=== PATIENT | female | born 1950 | race Caucasian/White ===

== ENCOUNTER 2024-10-24 09:35 | Outpatient (AMB) | payer MEDICARE, BC, SELFPAY ==
[2024-10-24 09:49] VITALS: BP 147/80; PULSE 91; RESP 18; TEMP 36.6; O2SAT 97; BMI 27.1
--- NOTE | 2024-10-24 09:49 | PD.ORTHCLVIS ---
Vital signs 10/24/24 09:49 Height 1.63 m Height Method Stated Weight 71.781 kg Weight Measurement Method Standing Scale BMI 27.1 BP 147/80 H Blood Pressure Source Automatic Cuff Blood Pressure Location Left Upper Arm Position Sitting Respiration 18 Pulse 91 Pulse Source Monitor Temp 97.9 F Temp Source Temporal Artery Scan Pulse Oximetry (%) 97 Oxygen Delivery Method Room Air Med/Allergies Allergies & Medications Allergies No Known Allergies Allergy (Verified 10/24/24 09:50) Medication Reconciliation lisinopril 5 mg tablet 5 mg PO QDAY 10/24/24 [History Confirmed 10/24/24] meloxicam submicronized 10 mg capsule 10 mg PO QAM 10/24/24 [History Confirmed 10/24/24] Exam Exam Patient is in no acute distress and is cooperative with the examination today. Breathing is nonlabored. In no respiratory distress. Bilateral extremities were evaluated and demonstrates sensation intact to light touch. Palpable pedal pulses are present. No significant edema is present. Bilateral hips were examined. The patient has no pain with log roll of the hips. Internal rotation to 30 degrees and external rotation to 30 degrees is painless. Negative FADIR. The left knee was examined. The left knee is in [varus] alignment. Range of motion from [0-115] degrees. Knee is stable to varus and valgus as well as AP translation with <5mm. Patient has a [negative] McMurrays. There is [no] pain with patellofemoral compression and [no] crepitus noted. The knee is [tender] to palpation [medially]. The right knee was also examined. The right knee is in [varus] alignment. Range of motion from [0-120] degrees. Knee is stable to varus and valgus as well as AP translation with <5mm. Patient has a [negative] McMurrays. There is [no] pain with patellofemoral compression and [no] crepitus noted. The knee is [tender] to palpation [medially]. X-rays demonstrate significant varus deformity with complete obliteration of the medial joint space. The arthritis is worse on the right it is very severe on the right and moderate to severe on the left. Assessment and Plan Problem List (1) Degenerative arthritis of knee, bilateral: Status: Acute Plan: Patient is a pleasant 74-year-old female with bilateral knee pain and bilateral knee arthritis. We discussed nonoperative options including injections and anti-inflammatories. She is failed conservative treatment and we thus discussed total knee replacement as a reasonable option. The nature and purpose of the total knee replacement, alternative method(s) of treatment, the material risks involved, and the possibility of complications were fully explained to the patient. The patient does NOT have any of the following contraindications to TKA: - Active infection of the knee joint, OR - Active systemic bacteremia, OR - Active skin infection or open wound at surgical site, OR - Neuropathic arthritis, OR - Severe, rapidly progressive neurological disease, OR - Severe medical condition that makes risks of surgery outweigh the potential benefit The patient was told the most common risks and complications associated with a total knee replacement include, but are not limited to: blood clots in the leg, fatal pulmonary embolism, dislocation of the prosthesis, intraoperative and postoperative fractures of the femur or tibia, infection, failure of the prosthesis or grafting materials, complications from anesthesia, reactions to blood transfusions, postoperative leg length inequality, instability of the knee replacement, nerve damage or injury, vascular injury, delayed wound healing, infection, other injury or even . In addition, there are risks associated with anesthesia given during this operation. Also, the patient was told that after undergoing a total knee replacement there may still be persistent pain or disability. The patient was informed that the success of this operation in part depends upon the mechanical devices which are going to be implanted and that these devices can fail or malfunction, and may need to be repaired or replaced and there are no guarantees as to the longevity of this device or its parts and that it or its parts could fail prematurely. The patient was also notified that during the course of surgery, there may be a need to use bone graft from donors, and that any bone graft used will be carefully screened for communicable diseases, including AIDS, hepatitis, Shimon-Creutzfeldt, or other diseases, but despite the screening procedures, there is a small chance that they could contract one of these diseases. Finally, the patient was asked to follow completely and fully with all advice and recommended treatments, and that recovery and ultimate outcome are affected by their compliance with recommended treatment. We discussed the risks, benefits and treatment alternatives, and the patient is interested in proceeding with surgery. We will try to set this up as expeditiously as possible. Advanced Care Planning Discussion Advance care planning discussed with:: patient Office Procedures GNS Level of Care Nursing/Assessment Patient Status: Established Patient Nursing Assessment/Reassesment: Medication Reconciliation, Update PMH in EMR and Vital Signs Coordination of Care: Complex Care and Chronic Disease 1-5, Education Complex Pt/Fam, Consent,records obtained, informed consent, Results/Orders obtained and Staff clarify orders Established Patient Charge Established Patient Point Assignment: 95 Established Patient Point Charge: EP Level 3 (80-115) MA Intake Visit Data Collection New Patient or Established: Established Patient (seen at [facility] within 3 years) Reason for Visit:: F/U KNEE PAIN Seen by Clinical Staff ONLY (RN/MA): No Rip/Mould Operator Required: No PCP or OBGYN visit in last 3 months: Yes Hx Now: No Do You Feel Safe at Home: Yes Authorities Contacted: N/A Questionairres Past Medical History Past Medical History Have you ever been diagnosed with any of the following: Respiratory Problems Smoking: No Smoking Exposure: No Subjective Visit Visit for: follow up visit and knee (RIGHT) Immunization / Flu Flu Vaccine in the Last 12 Months: No Flu Vaccine Exclusion Criteria: No Exclusion Criteria History of Present Illness Chief complaint: Bilateral knee pain worse on the right Elisabet is a pleasant 74-year-old female with Bilateral knee pain worse on the right. She has tried several injections and is failed conservative treatment. The pain is affecting her quality life and happiness. Pain Pain level (0-10): 0 Associated signs & symptoms: none Ambulatory data Ambulatory device: none Treatments Improvement with previous injections: No Improvement with PT: No Improvement with NSAIDS: no Review of Systems Review of Systems: All systems negative unless otherwise noted in HPI.
== END 2024-10-24 10:19 | disposition home or self-care (01) ==
LOC: HODSRG 09:35
PROVIDERS: PCP Family Medicine; Referring Provider Family Medicine; Supervising Provider Orthopaedic Surgery Adult Reconstructive Orthopaedic Surgery; Visit Provider Orthopaedic Surgery Adult Reconstructive Orthopaedic Surgery
DX: M17.0 Bilateral primary osteoarthritis of knee (principal)
CPT/HCPCS: 99213; G0463

== ENCOUNTER 2025-01-15 10:24 | Outpatient (AMB) | payer MEDICARE, BC, SELFPAY ==
[2025-01-15 10:48] VITALS: BP 155/73; PULSE 81; RESP 18; TEMP 36.8; O2SAT 98; BMI 27.3
--- NOTE | 2025-01-15 10:48 | ORTHONT_ITS ---
Vital signs 01/15/25 10:48 Height 1.63 m Height Method Stated Weight 72.802 kg Weight Measurement Method Standing Scale BMI 27.3 BP 155/73 H Blood Pressure Source Automatic Cuff Blood Pressure Location Right Upper Arm Position Sitting Respiration 18 Pulse 81 Pulse Source Monitor Temp 98.3 F Temp Source Temporal Artery Scan Pulse Oximetry (%) 98 Oxygen Delivery Method Room Air Med/Allergies Allergies & Medications Allergies No Known Allergies Allergy (Verified 01/15/25 10:49) Medication Reconciliation lisinopril 5 mg tablet 5 mg PO QDAY 10/24/24 [History Confirmed 01/15/25] meloxicam submicronized 10 mg capsule 10 mg PO QAM 10/24/24 [History Confirmed 01/15/25] Exam Exam Patient is in no acute distress and is cooperative with the examination today. Breathing is nonlabored. In no respiratory distress. Bilateral extremities were evaluated and demonstrates sensation intact to light touch. Palpable pedal pulses are present. No significant edema is present. Bilateral hips were examined. The patient has no pain with log roll of the hips. Internal rotation to 30 degrees and external rotation to 30 degrees is painless. Negative FADIR. The left knee was examined. The left knee is in [varus] alignment. Range of motion from [0-115] degrees. Knee is stable to varus and valgus as well as AP translation with <5mm. Patient has a [negative] McMurrays. There is [no] pain with patellofemoral compression and [no] crepitus noted. The knee is [tender] to palpation [medially]. The right knee was also examined. The right knee is in [varus] alignment. Range of motion from [0-120] degrees. Knee is stable to varus and valgus as well as AP translation with <5mm. Patient has a [negative] McMurrays. There is [no] pain with patellofemoral compression and [no] crepitus noted. The knee is [tender] to palpation [medially]. X-rays demonstrate significant varus deformity with complete obliteration of the medial joint space. The arthritis is worse on the right it is very severe on the right and moderate to severe on the left. Assessment and Plan Problem List (1) Degenerative arthritis of knee, bilateral: Status: Acute Plan: Patient is a pleasant 74-year-old female with bilateral knee pain and bilateral knee arthritis. We discussed nonoperative options including injections and anti-inflammatories. She is failed conservative treatment and we thus discussed total knee replacement as a reasonable option. The nature and purpose of the total knee replacement, alternative method(s) of treatment, the material risks involved, and the possibility of complications were fully explained to the patient. The patient does NOT have any of the following contraindications to TKA: - Active infection of the knee joint, OR - Active systemic bacteremia, OR - Active skin infection or open wound at surgical site, OR - Neuropathic arthritis, OR - Severe, rapidly progressive neurological disease, OR - Severe medical condition that makes risks of surgery outweigh the potential benefit The patient was told the most common risks and complications associated with a total knee replacement include, but are not limited to: blood clots in the leg, fatal pulmonary embolism, dislocation of the prosthesis, intraoperative and postoperative fractures of the femur or tibia, infection, failure of the prosthesis or grafting materials, complications from anesthesia, reactions to blood transfusions, postoperative leg length inequality, instability of the knee replacement, nerve damage or injury, vascular injury, delayed wound healing, infection, other injury or even . In addition, there are risks associated with anesthesia given during this operation. Also, the patient was told that after undergoing a total knee replacement there may still be persistent pain or disability. The patient was informed that the success of this operation in part depends upon the mechanical devices which are going to be implanted and that these devices can fail or malfunction, and may need to be repaired or replaced and there are no guarantees as to the longevity of this device or its parts and that it or its parts could fail prematurely. The patient was also notified that during the course of surgery, there may be a need to use bone graft from donors, and that any bone graft used will be carefully screened for communicable diseases, including AIDS, hepatitis, Jako b-Creutzfeldt, or other diseases, but despite the screening procedures, there is a small chance that they could contract one of these diseases. Finally, the patient was asked to follow completely and fully with all advice and recommended treatments, and that recovery and ultimate outcome are affected by their compliance with recommended treatment. We discussed the risks, benefits and treatment alternatives, and the patient is interested in proceeding with surgery. We will try to set this up as expeditiously as possible. Advanced Care Planning Discussion Advance care planning discussed with:: patient and spouse Office Procedures GNS Level of Care Nursing/Assessment Patient Status: Established Patient Nursing Assessment/Reassesment: Medication Reconciliation, Update PMH in EMR and Vital Signs Coordination of Care: Complex Care and Chronic Disease 1-5, Education Complex Pt/Fam, Consent,records obtained, informed consent, Results/Orders obtained and Staff clarify orders Established Patient Charge Established Patient Point Assignment: 95 Established Patient Point Charge: EP Level 3 (80-115) MA Intake Visit Data Collection New Patient or Established: Established Patient (seen at [facility] within 3 years) Reason for Visit:: PRE-OP & F/U CARDIAC CLEARANCE Seen by Clinical Staff ONLY (RN/MA): No Verbal consent obtained for Telemed visit?: No Nurse Charge Rn Required: No PCP or OBGYN visit in last 3 months: Yes Hx Now: No Do You Feel Safe at Home: Yes Authorities Contacted: N/A Questionairres Past Medical History Past Medical History Have you ever been diagnosed with any of the following: Respiratory Problems Smoking: No Smoking Exposure: No Subjective Visit Visit for: follow up visit and knee Immunization / Flu Flu Vaccine in the Last 12 Months: Yes Flu Vaccine Exclusion Criteria: No Exclusion Criteria History of Present Illness Chief complaint: PRE-OP & CARDIAC CLEARANCE Elisabet is a pleasant 74-year-old female with Bilateral knee pain worse on the right. She has tried several injections and has failed conservative treatment. The pain is affecting her quality life and happiness. Personal History Red flag PMH: BMI BMI Counceling provided: No Pain Pain level (0-10): 4 Pain duration: CONSTANTLY Pain location: inside (medial), outside (lateral), anterior and posterior Pain quality: sharp, dull and aching Pain timing: increases with activity Associated signs & symptoms: none Ambulatory data Ambulatory device: none Treatments Improvement with previous injections: No Improvement with PT: No Improvement with NSAIDS: no Review of Systems Review of Systems: All systems negative unless otherwise noted in HPI.
== END 2025-01-15 11:00 | disposition home or self-care (01) ==
LOC: HODSRG 10:24
PROVIDERS: PCP Family Medicine; Referring Provider Family Medicine; Supervising Provider Orthopaedic Surgery Adult Reconstructive Orthopaedic Surgery; Visit Provider Orthopaedic Surgery Adult Reconstructive Orthopaedic Surgery
DX: M17.0 Bilateral primary osteoarthritis of knee (principal); M25.562 Pain in left knee; M25.561 Pain in right knee
CPT/HCPCS: 99213; G0463

== ENCOUNTER → 2025-01-15 | Outpatient (CLI) | payer MEDICARE, BC, SELFPAY ==
--- NOTE | 2025-01-15 | XR_ITS ---
Examination: CT right lower extremity, without contrast. 2-D sagittal reconstructions. 2-D coronal reconstructions. 3-D reconstructions. Date and time of exam:January 15, 2025 1225 hours INDICATIONS: Diagnosis right knee osteoarthritis, right knee pain 25 years CTDI: vol (mGy):11.4 DLP: (mGycm):891 Technique: Multiple 1.25 mm axial sections of the right lower extremity without intravenous contrast have been obtained. 2-D sagittal and coronal reconstructions have been obtained. 3-D reconstructions have been obtained. Low dose protocols were performed. One or more of the following dose reduction techniques were used; automated exposure control, adjustment of the mA and/or KV according to patient size, use of iterative reconstruction technique. Findings: Moderate osteopenia Mild narrowing right hip joint No hip fracture or hip dislocation Advanced right knee tricompartment osteoarthritis, severe narrowing medial joint space No fractures IMPRESSION: Advanced right knee tricompartment osteoarthritis
== END | disposition home or self-care (01) ==
PROVIDERS: PCP Student in an Organized Health Care Education/Training Program; Referring Provider Orthopaedic Surgery Adult Reconstructive Orthopaedic Surgery; Visit Provider Orthopaedic Surgery Adult Reconstructive Orthopaedic Surgery
DX: M17.11 Unilateral primary osteoarthritis, right knee (principal)
CPT/HCPCS: 73700

== ENCOUNTER 2025-01-26 05:35 | Day surgery (SDC) | payer MEDICARE, BC, SELFPAY ==
[2025-01-23 07:52] VITALS: BMI 28.3
[2025-01-23 09:51] LABS: Basophils % (Auto) 1 % (0-2.5); Eosinophils # (Auto) 0.2 Thou/mm3 (0.0-0.5); Eosinophils % (Auto) 4 % (0-10); Hematocrit 36.1 % (36.0-46.0); Hemoglobin 12.5 g/dL (12.0-16.0); Immature Granulocytes % (Auto) 0 % (0-0); Immature Granulocytes Auto 0.01 Thou/mm3 (0.00-0.00); Lymphocytes % (Auto) 35 % (10-50); Mean Corpuscular HGB Conc 34.6 g/dl (31.0-37.0); Mean Corpuscular Hemoglobin 29.4 pg (25.0-35.0); Mean Corpuscular Volume 85 fL (80-100); Monocytes # (Auto) 0.5 Thou/mm3 (0.0-0.8); Monocytes % (Auto) 9 % (0-12); Neutrophils # (Auto) 2.8 Thou/mm3 (1.8-7.7); Neutrophils % (Auto) 51 % (37-80); Nucleated Red Blood Cell % 0 /100 WBC (0); Platelet Count 306 Thou/mm3 (140-440); Red Blood Count 4.25 Miln/mm3 (4.00-5.20); White Blood Count 5.6 Thou/mm3 (3.6-11.0)
[2025-01-23 10:02] LABS: Partial Thromboplastin Time 24.8 Seconds (22.0-36.0); Prothrombin Time 10.9 Seconds (9.0-12.2)
[2025-01-23 10:04] LABS: Alanine Aminotransferase 17 U/L (10-49); Albumin, Serum 4.6 gm/dL (3.4-4.8); Albumin/Globulin Ratio 2.3 (1.2-2.2); Alkaline Phosphatase 90 U/L (46-116); Anion Gap 10 (7-16); Aspartate Amino Transferase 27 U/L (0-34); BUN/Creatinine Ratio 11 Ratio (12-20); Bilirubin,Total 0.7 mg/dL (0.3-1.2); Blood Urea Nitrogen 11 mg/dL (9-23); Calcium 9.7 mg/dL (8.3-10.6); Calcium (Corrected) 9.7 mg/dL (8.5-10.1); Carbon Dioxide 25.5 mMol/L (20.0-31.0); Chloride 102 mMol/L (98-107); Estimated Creatinine Clearance 46.4 mL/min (>60); Glucose 101 mg/dL (74-106); Osmolality,Calculated 273 (275-295); Sodium 137 mMol/L (136-145); Total Protein 6.6 gm/dL (5.7-8.2); eGFR 59 See Note
[2025-01-26] VITALS (13 sets, daily range): BP systolic 112–176; BP diastolic 56–94; PULSE 60–76; RESP 13–20; TEMP 36.3–36.7; O2SAT 95–100; BMI 28.1
[2025-01-26] MEDS: ACETAMINOPHEN 325 MG TABLET 650 MG PO (06:55)
[2025-01-26] MEDS: PREGABALIN 75 MG CAPSULE PO (06:55)
[2025-01-26] MEDS: MELOXICAM 7.5 MG TABLET PO (06:55)
--- NOTE | 2025-01-26 09:19 | PD.SUROPNT ---
Date of Procedure 01/26/25 Pre Op Diagnosis right knee osteoarthritis Post Op Diagnosis right knee osteoarthritis Procedure right total knee replacement Findings full thickness cartilage loss and osteophytes Procedure Description Indication: The patient is a 74 year old who has a long history of right knee pain. X-rays show degenerative arthritis involving the knee. Over the past several years the patient has had increasing pain, progressive limitation in function. He has failed conservative measures including activity modification, physical therapy, injections, anti-inflammatories, and assistive devices. After a lengthy discussion of the risks and benefits, the patient presents now for total knee replacement. The nature and purpose of the total knee replacement, alternative method(s) of treatment, the material risks involved, and the possibility of complications were fully explained to the patient. The patient was told the most common risks and complications associated with a total knee replacement include, but are not limited to blood clots in the leg, fatal pulmonary embolism, dislocation of the prosthesis, intraoperative and postoperative fractures of the femur or tibia, infection, failure of the prosthesis or grafting materials, complications from anesthesia, reactions to blood transfusions, postoperative leg length inequality, instability of the knee replacement, nerve damage or injury, vascular injury, delayed wound healing, infections, other injury or even . In addition, there are risks associated with anesthesia given during this operation, temporary or permanent numbness on the skin lateral to the incision can be a complication unique to total knee surgery, and kneeling can be painful after knee replacement surgery. Also, the patient was told that after undergoing a total knee replacement there may still be pain or disability. We discussed with the patient that we will be using a robot-assisted technology. We discussed that there is a possibility of converting to manual instrumentation. The patient was informed that the success of this operation in part depends upon the mechanical devices which are going to be implanted and that these devices can fail or malfunction, and may need to be repaired or replaced and there are no guarantees as to the longevity of this device or its part and that it or its parts could fail prematurely. Finally, the patient was asked to follow completely and fully with all advice and recommended treatments, and that recovery and ultimate outcome are affected by their compliance with recommended treatment. Surgical technique: Patient was marked and consented in the pre-operative area. The patient was brought to the operating room and placed on the operating table in a supine position. Prior to positioning, a timeout procedure was performed between the surgeon, the anesthesiologist, and the nursing staff where the patient and the operative side were identified and confirmed. After adequate general anesthetic was obtained, the right lower extremity was prepped and draped in the usual sterile fashion. A weight based dose of Cefazolin were administered within 1 hour prior to incision. The robot was preregistered and calirated before the incision. The extremity was exsanguinated with an esmarch badge and tourniquet inflated to 250mmHg. A midline incision was made. A median parapatellar arthrotomy was made. The patella was subluxed laterally. A medial release was performed to expose the medial tibia. His femoral and tibial pins were placed through an intra incisional manner for both cases. Every effort was made to ensure that the distalmost aspect of the pin was hung in the second cortex. The arrays were then tightened several times to ensure that it was fixed for the remainder of the case. Both femoral and tibial checkpoints were then placed. We then went through the registration process of the bone. We then assessed the knee deformity and attempted to correct it. We also used the robot to aid in judging laxity in both extension and flexion. Final based on laxity and alignment we changed the preoperative assessment to obtain proper proper implant positioning and to correct deformity. Attention was then placed to the tibia. We made a tibial cut using the robot ensuring that both the MCL and the patella tendon were protected with retractors. We then went to the femur and made the posterior cut followed by the anterior cut and the anterior chamfer. The bone was then removed and we made a distal femur cut and a posterior chamfer cut. We verified all cuts. A trial reduction was performed with a size 4 femoral component and a size 3 keeled tibial component. The patella was cut and sized to a 36. The patella tracked centrally, and no lateral retinacular release was necessary. The trial implants were removed. The arrays, pins, and checkpoints were all removed. We performed a verification that all pins were removed. The cut bone surfaces were lavaged. A size 4 right femoral component, a size 3 keeled tibial component were impacted into position using 2 bags of palacos. A trial insert was placed and a size 36 patella were impacted into position. The knee was placed in extension until the cement hardened. The knee was felt to be well balanced in the sagittal and coronal plane. The final 3x12] mm cruciate-substituting articular insert was impacted into the tibial tray. The knee was brought out to full extension, flexed up to 120 degrees. It was stable to varus and valgus stress and appropriately balanced in flexion and extension. The wounds were copiously irrigated following deflation of tourniquet. The medial retinaculum was reapproximated with #1 vicryl and quill. The subcutaneous tissues were closed with 0 and 2-0 interrupted Vicryl. The skin was closed with 3-0 Monofilament V loc suture. A sterile dressing was applied. The patient was transferred to a bed and brought to recovery in stable condition. The patient tolerated the procedure well. There were no intraoperative complications. Sponge and needle counts were correct times 2. As the attending surgeon, I attest I was present and performed the entire operation. Grafts/Implants Size 4 CR Femur Size 3 Tibia 12mm poly CS 36mm patella 2 bags of palacos Anesthesia spinal Implants Viewdle Pathology / specimen None Pathology comment: none Estimated Blood Loss 150 Condition Stable Disposition same day Surgeon Dexter James MD Surgical Staff Operation Date: 01/26/25 07:30 Case Staff Anesthesiologist: Kenton Graham RN First Assistant: Angelika Ceron
--- NOTE | 2025-01-26 09:22 | XR_ITS ---
Examination: Right knee 2 views Technique one AP lateral right knee 2 views Date and time: January 26, 2025 1002 hours INDICATIONS: Postop knee replacement FINDINGS: Moderate osteopenia Total right knee arthroplasty. Satisfactory alignment No fractures IMPRESSION: Total right knee arthroplasty with satisfactory alignment
--- NOTE | 2025-01-26 09:37 | SUR.PHASEI ---
0937 Patient arrived to recovery awake and talking with staff, on oxygen 3L via oxy mask, breathing unlabored, vital signs stable, denies pain, dressing intact to right knee; prineo, abd, webril, marialuisa wraps, no bleeding noted, post spinal assessment via ice, patient has dermatome sensation at L1-groin, will continue to monitor, patient able to move bilateral lateral lower extremities, patient has good circulation to right lower extremity; skin color normal for patient and warm to touch, report received from Patience ALBERTS/Himanshu ALBERTS and Dr. Graham
--- NOTE | 2025-01-26 10:10 | SUR.PHASEI ---
1010 XRAY complete per MD order
--- NOTE | 2025-01-26 10:16 | SUR.PHASEI ---
patients at bedside talking with patient, patient eating ice chips; tolerating well
[2025-01-26] MEDS: ONDANSETRON INJ 2 MG/ML INJ 2 ML 4 MG IVP (10:48)
--- NOTE | 2025-01-26 11:08 | SUR.PHASEII ---
1108 Post spinal anesthesia anesthesia complete patient has dermatome sensation at S2 perineum
--- NOTE | 2025-01-26 11:30 | SUR.PHASEII ---
1130 Patient had an incontinence episode in the bed, patient cleaned and gown/underwear changed
--- NOTE | 2025-01-26 11:50 | SUR.PHASEII ---
1153 patient cleared by physical therapy to proceed with discharge
--- NOTE | 2025-01-26 12:07 | SUR.PHASEII ---
1207 Patient meets discharge criteria from recovery, awake and alert, breathing unlabored, vital signs stable, denies pain, dressing intact; no bleeding noted, eating ice chips with her nausea at a tolerable level, patient assisted with dressing into her clothing by this mortgage underwriter, discharge instructions given to patient and patients , signed discharge instructions. Patient given all her belongings prior to discharge, transported via wheelchair and left in a private vehicle.
== END 2025-01-26 12:07 | disposition home or self-care (01) ==
PROVIDERS: Anesthesiology; PCP Student in an Organized Health Care Education/Training Program; Referring Provider Orthopaedic Surgery Adult Reconstructive Orthopaedic Surgery; Visit Provider Orthopaedic Surgery Adult Reconstructive Orthopaedic Surgery
PROC: (CPT 27447; principal; 2025-01-26 07:30)
DX: M17.11 Unilateral primary osteoarthritis, right knee (principal); M25.761 Osteophyte, right knee
CPT/HCPCS: 27447; 20985; 36415; 73560; 80053; 85025; 85610; 85730; 97162; A4217; C1713; C1776; J0690; J1100; J1885; J2250; J2405; J2704; J2795; J3010; J3490; J7030; J7999; A4648; A4649; A9270

== ENCOUNTER 2025-02-10 09:11 | Outpatient (AMB) | payer MEDICARE, BC, SELFPAY ==
--- NOTE | 2025-02-10 09:39 | PD.ORTHCLVIS ---
Vital signs 02/10/25 09:44 Weight 71.271 kg Weight Measurement Method Standing Scale BP 126/72 Blood Pressure Source Automatic Cuff Blood Pressure Location Left Upper Arm Position Sitting Respiration 16 Pulse 95 Pulse Source Monitor Temp 98.4 F Temp Source Temporal Artery Scan Pulse Oximetry (%) 98 Oxygen Delivery Method Room Air Med/Allergies Allergies & Medications Allergies shellfish derived Allergy (Intermediate, Verified 02/10/25 09:44) Fatigued Medication Reconciliation lisinopril 5 mg tablet 5 mg PO QDAY 10/24/24 [History Confirmed 02/10/25] meloxicam 7.5 mg tablet 7.5 mg PO DAILY 01/23/25 [History Confirmed 02/10/25] acetaminophen 500 mg tablet (Acetaminophen Extra Strength) 1,000 mg (2 x 500 mg) PO Q6H PRN pain #90 tabs 01/26/25 [Rx Confirmed 02/10/25] aspirin 81 mg tablet,delayed release 81 mg PO BID #60 tabs 01/26/25 [Rx Confirmed 02/10/25] doxycycline hyclate 100 mg tablet 100 mg PO BID #14 tabs 01/26/25 [Rx Confirmed 02/10/25] gabapentin 300 mg capsule 300 mg PO .qhs #30 caps 01/26/25 [Rx Confirmed 02/10/25] oxycodone 5 mg tablet 5 mg PO Q6H PRN pain #28 tabs 01/26/25 [Rx Confirmed 02/10/25] sennosides 8.6 mg-docusate sodium 50 mg tablet (Senna-S) 1 tab-cap PO QDAY #30 tabs 01/26/25 [Rx Confirmed 02/10/25] Exam Exam Patient is in no acute distress and is cooperative with the examination today. Breathing is nonlabored. In no respiratory distress. Bilateral extremities were evaluated and demonstrates sensation intact to light touch. Palpable pedal pulses are present. No significant edema is present. Bilateral hips were examined. The patient has no pain with log roll of the hips. Internal rotation to 30 degrees and external rotation to 30 degrees is painless. Negative FADIR. The left knee was examined. The left knee is in [varus] alignment. Range of motion from [0-115] degrees. Knee is stable to varus and valgus as well as AP translation with <5mm. Patient has a [negative] McMurrays. There is [no] pain with patellofemoral compression and [no] crepitus noted. The knee is [tender] to palpation [medially]. Right knee incision is clean dry and intact. Range of motion is 0 to 100 degrees Assessment and Plan Problem List (1) Degenerative arthritis of knee, bilateral: Status: Acute Plan: Patient is a pleasant 74-year-old female with bilateral knee pain and bilateral knee arthritis. She is status post right total knee replacement. We will see her in approximately 4 weeks Advanced Care Planning Discussion Advance care planning discussed with:: patient Office Procedures GNS Level of Care Nursing/Assessment Patient Status: Established Patient Nursing Assessment/Reassesment: Medication Reconciliation, Update PMH in EMR and Vital Signs Coordination of Care: Complex Care and Chronic Disease 1-5, Education Complex Pt/Fam, Consent,records obtained, informed consent, Results/Orders obtained and Staff clarify orders Established Patient Charge Established Patient Point Assignment: 95 Established Patient Point Charge: EP Level 3 (80-115) MA Intake Visit Data Collection New Patient or Established: Established Patient (seen at [facility] within 3 years) Reason for Visit:: 2 WEEK POST RT TKA Seen by Clinical Staff ONLY (RN/MA): No [employer] Required: No PCP or OBGYN visit in last 3 months: Yes Hx Now: No Do You Feel Safe at Home: Yes Authorities Contacted: N/A Questionairres Past Medical History Past Medical History Have you ever been diagnosed with any of the following: Neurological Problems Seizures: No Cardiology Problems Congestive Heart Failure: No Hypertension: Yes Varicose Veins: No Respiratory Problems Chronic Obstructive Pulmonary Disease (COPD): No Smoking: No Smoking Exposure: No Stomache/Intestinal Problems Hepatitis: No Genital/Urinary Problems Renal Disease: No Reproductive Problems Previous Pregnancies: Yes Musculoskeletal Problems Arthritis: Yes Endocrine Problems Diabetes Mellitus Type 1: No Diabetes Mellitus Type 2: No Psychologic Problems Anxiety: Yes Other Problems Shingles: No Blood Transfusions: No Blood Transfusion Reaction: No Anesthesia Reactions: No Chicken Pox: Yes Measles: Yes Mumps: Yes Cancer: No Subjective Visit Visit for: follow up visit and post op #1 (2 WEEK POST RT TKA ) Immunization / Flu Flu Vaccine in the Last 12 Months: No Flu Vaccine Exclusion Criteria: Refused by Patient History of Present Illness Chief complaint: PRE-OP & CARDIAC CLEARANCE Elisabet is a pleasant 74-year-old female with Bilateral knee pain worse on the right. She is status post right total knee replacement And is doing well Personal History Red flag PMH: none BMI Counceling provided: No Pain Pain level (0-10): 5 Pain duration: 01/2025 Pain location: anterior Pain quality: aching Pain timing: increases with activity Associated signs & symptoms: stiffness Ambulatory data Ambulatory device: cane Walking distance (minutes): 1 Treatments Number of previous injections: 2 Improvement with previous injections: No Number of Physical Therapy sessions: 7 Improvement with PT: Yes Improvement with NSAIDS: n/a Review of Systems Review of Systems: All systems negative unless otherwise noted in HPI.
[2025-02-10 09:44] VITALS: BP 126/72; PULSE 95; RESP 16; TEMP 36.9; O2SAT 98
== END 2025-02-10 09:52 | disposition home or self-care (01) ==
LOC: HODSRG 09:11
PROVIDERS: PCP Student in an Organized Health Care Education/Training Program; Referring Provider Student in an Organized Health Care Education/Training Program; Supervising Provider Orthopaedic Surgery Adult Reconstructive Orthopaedic Surgery; Visit Provider Orthopaedic Surgery Adult Reconstructive Orthopaedic Surgery
DX: M17.0 Bilateral primary osteoarthritis of knee (principal); M25.562 Pain in left knee; M25.561 Pain in right knee; Z96.651 Presence of right artificial knee joint; I10 Essential (primary) hypertension
CPT/HCPCS: 99213; G0463

== ENCOUNTER 2025-03-03 08:46 | Outpatient (AMB) | payer MEDICARE, BC, SELFPAY ==
--- NOTE | 2025-03-03 08:56 | PD.ORTHCLVIS ---
Vital signs 03/03/25 09:02 Height 1.6 m Height Method Stated Weight 71.299 kg Weight Measurement Method Standing Scale BMI 27.8 BP 134/84 H Blood Pressure Source Automatic Cuff Blood Pressure Location Left Upper Arm Position Sitting Respiration 18 Pulse 82 Pulse Source Monitor Temp 97.0 F Temp Source Temporal Artery Scan Pulse Oximetry (%) 95 Oxygen Delivery Method Room Air Med/Allergies Allergies & Medications Allergies shellfish derived Allergy (Intermediate, Verified 03/03/25 09:04) Fatigued Medication Reconciliation lisinopril 5 mg tablet 5 mg PO QDAY 10/24/24 [History Confirmed 03/03/25] meloxicam 7.5 mg tablet 7.5 mg PO DAILY 01/23/25 [History Confirmed 03/03/25] acetaminophen 500 mg tablet (Acetaminophen Extra Strength) 1,000 mg (2 x 500 mg) PO Q6H PRN pain #90 tabs 01/26/25 [Rx Confirmed 03/03/25] aspirin 81 mg tablet,delayed release 81 mg PO BID #60 tabs 01/26/25 [Rx Confirmed 03/03/25] gabapentin 300 mg capsule 300 mg PO .qhs #30 caps 01/26/25 [Rx Confirmed 03/03/25] oxycodone 5 mg tablet 5 mg PO Q6H PRN pain #28 tabs 02/18/25 [Rx Confirmed 03/03/25] Exam Exam Patient is in no acute distress and is cooperative with the examination today. Breathing is nonlabored. In no respiratory distress. Bilateral extremities were evaluated and demonstrates sensation intact to light touch. Palpable pedal pulses are present. No significant edema is present. Bilateral hips were examined. The patient has no pain with log roll of the hips. Internal rotation to 30 degrees and external rotation to 30 degrees is painless. Negative FADIR. The left knee was examined. The left knee is in [varus] alignment. Range of motion from [0-115] degrees. Knee is stable to varus and valgus as well as AP translation with <5mm. Patient has a [negative] McMurrays. There is [no] pain with patellofemoral compression and [no] crepitus noted. The knee is [tender] to palpation [medially]. Right knee incision is clean dry and intact. Range of motion is 0 to 100 degrees Assessment and Plan Problem List (1) Degenerative arthritis of knee, bilateral: Status: Acute Plan: Patient is a pleasant 74-year-old female with bilateral knee pain and bilateral knee arthritis. She is status post right total knee replacement. We will see her in approximately 6 weeks I will order new x-rays as well Advanced Care Planning Discussion Advance care planning discussed with:: patient Office Procedures GNS Level of Care Nursing/Assessment Patient Status: Established Patient Nursing Assessment/Reassesment: Medication Reconciliation, Update PMH in EMR and Vital Signs Coordination of Care: Complex Care and Chronic Disease 1-5, Education Complex Pt/Fam, Consent,records obtained, informed consent, Results/Orders obtained and Staff clarify orders Established Patient Charge Established Patient Point Assignment: 95 Established Patient Point Charge: EP Level 3 (80-115) MA Intake Visit Data Collection New Patient or Established: Established Patient [place] [facility] [place] Reason for Visit:: R TKA F/U SWOLLEN/HOT TO TOUCH Seen by Clinical Staff ONLY (RN/MA): No PCP or OBGYN visit in last 3 months: Yes Hx Now: No Do You Feel Safe at Home: Yes Authorities Contacted: N/A Questionairres Past Medical History Past Medical History Have you ever been diagnosed with any of the following: Neurological Problems Seizures: No Cardiology Problems Congestive Heart Failure: No Hypertension: Yes Varicose Veins: No Respiratory Problems Chronic Obstructive Pulmonary Disease (COPD): No Smoking: No Smoking Exposure: No Stomache/Intestinal Problems Hepatitis: No Genital/Urinary Problems Renal Disease: No Reproductive Problems Previous Pregnancies: Yes Musculoskeletal Problems Arthritis: Yes Endocrine Problems Diabetes Mellitus Type 1: No Diabetes Mellitus Type 2: No Psychologic Problems Anxiety: Yes Other Problems Shingles: No Blood Transfusions: No Blood Transfusion Reaction: No Anesthesia Reactions: No Chicken Pox: Yes Measles: Yes Mumps: Yes Cancer: No Surgical History Total Knee Replacement: Yes (RIGHT) Subjective Visit Visit for: follow up visit and knee Immunization / Flu Flu Vaccine in the Last 12 Months: No Flu Vaccine Exclusion Criteria: No Exclusion Criteria History of Present Illness Chief complaint: PRE-OP & CARDIAC CLEARANCE Elisabet is a pleasant 74-year-old female with Bilateral knee pain worse on the right. She is status post right total knee replacement And is doing well. She is 6 weeks postop and is using a cane at times Personal History Red flag PMH: none BMI Counceling provided: No Pain Pain level (0-10): 2 Pain duration: WITH MOVEMENT Pain location: anterior Pain quality: aching Pain timing: increases with activity Associated signs & symptoms: none Ambulatory data Ambulatory device: cane Walking distance (minutes): 1 Treatments Number of previous injections: 2 Improvement with previous injections: No Number of Physical Therapy sessions: 7 Improvement with PT: No Improvement with NSAIDS: no Review of Systems Review of Systems: All systems negative unless otherwise noted in HPI.
[2025-03-03 09:02] VITALS: BP 134/84; PULSE 82; RESP 18; TEMP 36.1; O2SAT 95; BMI 27.8
--- NOTE | 2025-03-03 09:06 | XR_ITS ---
Examination: Bilateral knees 2 views Standing lateral right knee axial right knee 2 views TECHNIQUE: Standing bilateral AP knees single view, standing bilateral PA knees single view flexion Date and time: March 03, 2025 0915 hours INDICATIONS: Status post right knee surgery January 26, 2025, fever and knee swelling 3 days. FINDINGS: Moderate osteopenia Total right knee arthroplasty. Satisfactory alignment No patellar dislocation No fracture Advanced narrowing medial joint space left knee Significant osteoarthritis lateral joint space left knee IMPRESSION: Total right knee arthroplasty with satisfactory alignment Small to moderate right knee effusion
== END 2025-03-03 09:14 | disposition home or self-care (01) ==
LOC: HODSRG 08:46
PROVIDERS: Supervising Provider Orthopaedic Surgery Adult Reconstructive Orthopaedic Surgery; Visit Provider Orthopaedic Surgery Adult Reconstructive Orthopaedic Surgery
DX: M17.0 Bilateral primary osteoarthritis of knee (principal); M25.562 Pain in left knee; M25.561 Pain in right knee; M25.461 Effusion, right knee; Z96.651 Presence of right artificial knee joint; I10 Essential (primary) hypertension
CPT/HCPCS: 73564; 99213; G0463

== ENCOUNTER 2025-03-19 09:00 | Outpatient (RCR) | payer MEDICARE, BC, SELFPAY ==
--- NOTE | 2025-02-18 11:23 | PTNOTE_ITS ---
PT OP Initial Eval Patient Information Outpatient Physical Therapy Treatment Date: 02/18/25 Visit Reasons: RT knee post op Medical Diagnosis: s/p R TKA Treatment Dx #1: R knee pain Treatment Dx #2: Dec R knee ROM Start of Care: 02/18/25 Date of Onset: 01/26/25 Smoking Status Smoking Status: Never smoker Initial Assessment Subjective: Pt is 74 yr old female s/p R TKA presents ambulating with cane and reports pain with walking and bending it. This limits walking distance to HH and limited community distances. She had HH therapy for a few visits and has been doing HEP. PMH: OA Pt goal: to walk without the cane and without R knee pain Objective: R knee AROM: ? Flexion: 95 deg ? Extension: -7 deg ? SLR: ? 65 deg ? Strength: ? Quads and hamstrings 3+/5 ? Antalgic gait pattern with decreased WB tolerance on R LE Assessment: Pt presentation consistent with post op TKA with decreased ROM, strength ? and WB tolerance. Pt lacks a few degrees of knee extension and flexion is limited by ? myofascial limitations and pain.? Pt requires skilled therapy to improve ROM ? and strength and has good rehab potential.? Eval followed by HEP with printout. Short Term and Dope Worker Goals 1. Independent with HEP 2. Improved knee ROM to full extension to 115 deg flexion 3. Improved quad and hamstring strength to 4/5 4. Improved ambulatory tolerance to community distances with symmetrical ?? gait pattern.??? Treatment Plan 1. Manual therapy ? 2. Therex ? 3. Modalities as indicated, moist heat, ice, estim Frequency and Duration: 2-3x a week for 18 visits plus the evaluation Certification Dates: 02/18/25 to 05/20/25 Procedure Charges OP PT Eval Mod Complex 30 minutes: Yes
--- NOTE | 2025-02-23 16:39 | PT.ODAYNRPT ---
PT Outpatient Daily Note OP Daily Note Outpatient Physical Therapy Treatment Date: 02/23/25 Visit Reasons: RT knee post op Subjective: Same as time of evaluation Objective: See F/S for therex Ice x5' R knee Assessment: R knee extension ROM improved a few degrees after Rx today Plan: Continue per POC Length of Time (minutes) of Treatment: 30 Minutes Procedure Charges Therapeutic Exercise 30 minutes: Yes
--- NOTE | 2025-02-25 11:17 | PT.ODAYNRPT ---
PT Outpatient Daily Note OP Daily Note Outpatient Physical Therapy Treatment Date: 02/25/25 Visit Reasons: RT knee post op Subjective: Soreness of R knee, she is using ice multiple times a day Objective: See F/S for therex Ice x5' R knee Assessment: R knee extension ROM improved a few degrees after Rx today Plan: Continue per POC Length of Time (minutes) of Treatment: 30 Minutes Procedure Charges Therapeutic Exercise 30 minutes: Yes
--- NOTE | 2025-03-02 13:01 | PT.ODAYNRPT ---
PT Outpatient Daily Note OP Daily Note Outpatient Physical Therapy Treatment Date: 03/02/25 Visit Reasons: RT knee post op Subjective: Soreness of R knee, she is using ice multiple times a day Objective: See F/S for therex Ice x5' R knee Assessment: R knee extension ROM improved a few degrees after Rx today to about -5 deg Plan: Continue per POC Length of Time (minutes) of Treatment: 30 Minutes Procedure Charges Therapeutic Exercise 30 minutes: Yes
--- NOTE | 2025-03-04 13:08 | PT.ODAYNRPT ---
PT Outpatient Daily Note OP Daily Note Outpatient Physical Therapy Treatment Date: 03/04/25 Visit Reasons: RT knee post op Subjective: Soreness of R knee, she is using ice multiple times a day and thinks she burned her skin with it Objective: See F/S for therex Ice x5' R knee MT: PROM into flexion x5' Assessment: R knee extension ROM improved a few degrees after Rx today to about -5 deg. Flexion improved to about 102 deg with overpressure. Plan: Continue per POC Length of Time (minutes) of Treatment: 30 Minutes Procedure Charges Therapeutic Exercise 30 minutes: Yes
--- NOTE | 2025-03-09 15:34 | PT.ODAYNRPT ---
PT Outpatient Daily Note OP Daily Note Outpatient Physical Therapy Treatment Date: 03/09/25 Visit Reasons: RT knee post op Subjective: Pt reports her R knee is ok, still not moving as much as she would like. Objective: Please see flow sheet for there x list. Assessment: Pt guarded during PROM into knee flexion limiting mobility. Pt encouraged to continue with HEP. Plan: Continue with pOC. Length of Time (minutes) of Treatment: 30 Minutes LIFE ENRICHMENT MANAGER Service Modifier Method I: Divide the number of min of care provided by the LIFE ENRICHMENT MANAGER/TIKI by the total min of care provided then multiply by 100. If greater than 11 percent modifier is required. Method II: Divide the total time of care provided to patient by 10 (round to the nearest whole number) and add 1 min. to set the minimum time requirement. If treatment total was 60 min., then 10% of 6 min PT CQ modifier applied: CQ Modifier applied Procedure Charges Therapeutic Exercise 30 minutes: Yes
--- NOTE | 2025-03-12 14:56 | PT.ODAYNRPT ---
PT Outpatient Daily Note OP Daily Note Outpatient Physical Therapy Treatment Date: 03/12/25 Visit Reasons: RT knee post op Subjective: Pt reports knee is doing ok, ROM is not where she would like. Objective: Please see flow sheet for ther ex list. Assessment: Focus on interventions to improve ROm to work toward normalizing gait. Plan: Continue with poC. Length of Time (minutes) of Treatment: 30 Minutes Procedure Charges Therapeutic Exercise 30 minutes: Yes
--- NOTE | 2025-03-17 13:27 | PT.ODAYNRPT ---
PT Outpatient Daily Note OP Daily Note Outpatient Physical Therapy Treatment Date: 03/17/25 Visit Reasons: RT knee post op Subjective: Soreness of R knee, she is using ice multiple times a day and the scar looks purple. She c/o lateral thigh and knee pain Objective: See F/S for therex Ice x5' R knee MT: STM R ITB x5' Assessment: R knee extension ROM improved a few degrees after Rx today to about -3 deg. Flexion is about 97 deg with overpressure. Pt has moderate R ITB TTP. Plan: Continue per POC Length of Time (minutes) of Treatment: 30 Minutes Procedure Charges Therapeutic Exercise 30 minutes: Yes
--- NOTE | 2025-03-19 13:15 | PT.ODS1RPT ---
PT OP Progress/Discharge Note Date of Service: 03/19/25 Progress Note/DC Note Progress Note/Discharge Note: Progress Note Patient Information Visit Reasons: RT knee post op Service Continue Service or Discharge: Continue Service Status Subjective: Overall better ROM and strength of R knee with pain at end-range flexion Objective: R knee AROM PROM: Flexion: 100 deg 108 deg Extension: -3 deg full Gait: symmetrical without cane Assessment: Pt has attended the eval and 8 Rx sessions with good progress with therapy goals. Pt has improved PROM to 108 deg which is shy of the 115 deg goal. Quad and HS strength is 4-/5. Pt has improved ambulatory distance to community to meet that goal. She would benefit from continued therapy to meet strength and ROM goals. Plan: Continue per POC up to 18 visits Procedure Charges Therapeutic Exercise 30 minutes: Yes
== END 2025-03-19 23:59 | disposition home or self-care (01) ==
LOC: CPTX 09:00
PROVIDERS: PCP Orthopaedic Surgery Adult Reconstructive Orthopaedic Surgery; Referring Provider Orthopaedic Surgery Adult Reconstructive Orthopaedic Surgery; Visit Provider Orthopaedic Surgery Adult Reconstructive Orthopaedic Surgery
DX: M25.561 Pain in right knee (principal); Z96.651 Presence of right artificial knee joint
CPT/HCPCS: 97110; 97162

== ENCOUNTER 2025-03-31 08:04 | Outpatient (AMB) | payer MEDICARE, BC, SELFPAY ==
--- NOTE | 2025-03-31 08:08 | PD.ORTHCLVIS ---
Vital signs 03/31/25 08:12 Height 1.6 m Height Method Stated Weight 70.987 kg Weight Measurement Method Standing Scale BMI 27.7 BP 130/74 Blood Pressure Source Automatic Cuff Blood Pressure Location Left Upper Arm Position Sitting Respiration 18 Pulse 83 Pulse Source Monitor Temp 97.8 F Temp Source Temporal Artery Scan Pulse Oximetry (%) 97 Oxygen Delivery Method Room Air Med/Allergies Allergies & Medications Allergies shellfish derived Allergy (Intermediate, Verified 03/31/25 08:12) Fatigued Medication Reconciliation lisinopril 5 mg tablet 5 mg PO QDAY 10/24/24 [History Confirmed 03/31/25] meloxicam 7.5 mg tablet 7.5 mg PO DAILY 01/23/25 [History Confirmed 03/31/25] acetaminophen 500 mg tablet (Acetaminophen Extra Strength) 1,000 mg (2 x 500 mg) PO Q6H PRN pain #90 tabs 01/26/25 [Rx Confirmed 03/31/25] gabapentin 300 mg capsule 300 mg PO .qhs #30 caps 01/26/25 [Rx Confirmed 03/31/25] oxycodone 5 mg tablet 5 mg PO Q6H PRN pain #28 tabs 02/18/25 [Rx Confirmed 03/31/25] Exam Exam Patient is in no acute distress and is cooperative with the examination today. Breathing is nonlabored. In no respiratory distress. Bilateral extremities were evaluated and demonstrates sensation intact to light touch. Palpable pedal pulses are present. No significant edema is present. Bilateral hips were examined. The patient has no pain with log roll of the hips. Internal rotation to 30 degrees and external rotation to 30 degrees is painless. Negative FADIR. The left knee was examined. The left knee is in [varus] alignment. Range of motion from [0-115] degrees. Knee is stable to varus and valgus as well as AP translation with <5mm. Patient has a [negative] McMurrays. There is [no] pain with patellofemoral compression and [no] crepitus noted. The knee is [tender] to palpation [medially]. Right knee incision is clean dry and intact. Range of motion is 0 to 100 degrees Right knee xrays demonstrates a cementless total knee replacement in good alignment and position Assessment and Plan Problem List (1) Degenerative arthritis of knee, bilateral: Status: Acute Plan: Patient is a pleasant 74-year-old female with bilateral knee pain and bilateral knee arthritis. She is status post right total knee replacement. Patient is doing well. Will see her approximately 2-3 months Advanced Care Planning Discussion Advance care planning discussed with:: patient Office Procedures GNS Level of Care Nursing/Assessment Patient Status: Established Patient Nursing Assessment/Reassesment: Medication Reconciliation, Update PMH in EMR and Vital Signs Coordination of Care: Complex Care and Chronic Disease 1-5, Education Complex Pt/Fam, Consent,records obtained, informed consent, Results/Orders obtained and Staff clarify orders Established Patient Charge Established Patient Point Assignment: 95 Established Patient Point Charge: EP Level 3 (80-115) MA Intake Visit Data Collection New Patient or Established: Established Patient (seen at [facility] within 3 years) Reason for Visit:: R TKA FOLLOW UP/XRAY RESULTS Seen by Clinical Staff ONLY (RN/MA): No PCP or OBGYN visit in last 3 months: Yes Hx Now: No Do You Feel Safe at Home: Yes Authorities Contacted: N/A Questionairres Past Medical History Past Medical History Have you ever been diagnosed with any of the following: Neurological Problems Cerebrovascular Accident (CVA): No Transient Ischemic Attacks (TIA): No Dementia: No Alzheimer's Disease: No Parkinson's Disease: No Brain Tumor: No Meningitis: No Seizures: No Epilepsy: No Multiple Sclerosis: No Cerebral Palsy: No Amyotrophic Lateral Sclerosis (ALS/Kylie Gehrig's): No Guillain-[place] Syndrome: No Spina Bifida: No Paralysis: No Peripheral Neuropathy: No Wilkes's Palsy: No Subdural Hematoma: No Migraine: No Head Trauma: No Spinal Cord Injury: No Traumatic Brain Injury: No Cardiology Problems Myocardial Infarction: No Cardiac Arrhythmia: No Atrial Fibrillation: No Angina: No Heart Murmur: No Coronary Artery Disease: No Atherosclerotic Heart Disease: No Hypercholesterolemia: No Aneurysm: No Congestive Heart Failure: No Congenital Heart Disease: No Valvular Heart Disease: No Rheumatic Fever: No Cardiomyopathy: No Edema: No Pericarditis: No Cellulitis: No Deep Vein Thrombosis: No Hypertension: Yes Hypotension: No Varicose Veins: No Respiratory Problems Chronic Obstructive Pulmonary Disease (COPD): No Asthma: No Bronchitis: No Emphysema: No Pneumonia: No Pulmonary Fibrosis: No Tuberculosis: No Pulmonary Embolism: No Pulmonary Edema: No Sleep Apnea: No CPAP Dependent: No Respiratory Aspiration: No Dyspnea: No Orthopnea: No Hx Cough: No Cough: No Wheezing: No Chest Deformities: No Smoking: No Smoking Cessation Counseling: No Smoking Exposure: No Tobacco Use: No Clubbing: No Exposure to Respiratory Irritants: No Intubation: No Stomache/Intestinal Problems Liver Cancer: No Hepatitis: No Cirrhosis: No Pancreatic Cancer: No Pancreatitis: No Celiac Disease: No Gall Bladder Disease: No Gastrointestinal Bleed: No Esophageal Varices: No Dominguez's Esophagus: No Colitis: No Ulcerative Colitis: No Diverticulitis: No Diverticulosis: No Ulcer: No Colorectal Cancer: No Irritable Bowel: No Crohn's Disease: No Obstructive Bowel: No Hiatal Hernia: No Hemorrhoids: No Gastroesophageal Reflux Disease: No Polyps: No Obesity: No Genital/Urinary Problems Chronic Kidney Disease: No Renal Disease: No Kidney Stones: No Polycystic Kidney Disease: No Neurogenic Bladder: No Inguinal Hernia: No Dialysis: No Reproductive Problems Breast Cancer: No Endometriosis: No Fibroids: No Genital Herpes: No Gonorrhea: No Pelvic Inflammatory Disease: No Polycystic Ovarian Syndrome: No Previous Pregnancies: Yes Syphilis: No Uterine Prolapse: No Musculoskeletal Problems Muscular Dystrophy: No Myasthenia Gravis: No Marfan's Syndrome: No Bone Cancer: No Arthritis: Yes Rheumatoid Arthritis: No Osteoporosis: No Degenerative Disk Disease: No Gout: No Scoliosis: No Carpal Tunnel Syndrome: No Fibromyalgia: No Fractures: No Degenerative Joint Disease: No Osteomyelitis: No Poliovirus: No Head,Eye,Nose,Throat Problems Cataracts: No Glaucoma: No Blind: No Retinal Detachment: No Macular Degeneration: No Chronic Ear Infections: No Deafness: No Eye Prosthesis: No Endocrine Problems Diabetes Mellitus Type 1: No Diabetes Mellitus Type 2: No Hypoglycemia: No Mary's Syndrome: No Matt's Disease: No Hyperthyroidism: No Hypothyroidism: No Thyroid Cancer: No Parathyroid Disease: No Pituitary Disease: No Systemic Lupus Erythematosus: No Syndrome of Inappropriate Antidiuretic Hormone: No Adrenal Disease: No Graves' Disease: No Blood Problems Anemia: No Leukemia: No Hemophilia: No Thalassemia: No Sickle Cell Disease: No Clotting Problems: No Psychologic Problems Schizophrenia: No Recreational Drug Use: No Bipolar Disorder: No Depression: No Anxiety: Yes Behavior Problems: No Self-Mutilation: No Attention Deficit Disorder: No Attention Deficit Hyperactivity Disorder: No Depression: No Post Traumatic Stress Disorder: No Eating Disorder: No Other Problems Hospitalization: No Autoimmune Disease: No Down Syndrome: No Autism: No Developmental Delay: No Cosmetic Surgery: No Shingles: No Falls: No Blood Transfusions: No Blood Transfusion Reaction: No Anesthesia Reactions: No Organ Transplant: No Chemotherapy: No Radiation Therapy: No Hyperbaric Therapy: No MRSA: No VRSA: No Vancomycin-Resistant Enterococci: No Human Immunodeficiency Virus (HIV): No Chicken Pox: Yes Measles: Yes Mumps: Yes Rubella ([place]eng[place] Measles): No Pertussis: No Klebsiella Pneumoniae Carbapenemase Producing Bacteria: No Clostridium Difficile: No Hepatitis A: No Hepatitis B: No Hepatitis C: No Communicable Disease: No Cancer: No Cervical Cancer: No Lung Cancer: No Ovarian Cancer: No Surgical History Angioplasty: No Appendectomy: No Bariatric Surgery: No Breast Surgery: No Cancer Surgery: No Carotid Endarterectomy: No Cholecystectomy: No Colectomy: No Colostomy: No Coronary Artery Bypass Graft: No Valve Replacement: No Herniorrhaphy: No Total Hip Replacement: No Total Knee Replacement: Yes (RIGHT) Hysterectomy: No Pacemaker: No Sinus Surgery: No Splenectomy: No TAHBSO-Total Abdominal Hysterectomy: No Thyroidectomy: No Ureter Stent: No Subjective Visit Visit for: follow up visit, post op #3, knee and x-rays Immunization / Flu Flu Vaccine in the Last 12 Months: No Flu Vaccine Exclusion Criteria: No Exclusion Criteria History of Present Illness Chief complaint: R TKA POST OP/XRAY RESULTS Elisabet is a pleasant 74-year-old female with Bilateral knee pain worse on the right. She is status post right total knee replacement And is doing well. She is 10 weeks postop . Personal History Red flag PMH: none BMI Counceling provided: No Pain Pain level (0-10): 4 Pain duration: ON AND OFF Pain location: outside (lateral) and anterior Pain quality: aching and tingling Pain timing: increases with activity Associated signs & symptoms: numbness Ambulatory data Ambulatory device: none Walking distance (minutes): 1 Treatments Number of previous injections: 2 Improvement with previous injections: No Number of Physical Therapy sessions: 7 Improvement with PT: No Improvement with NSAIDS: no Review of Systems Review of Systems: All systems negative unless otherwise noted in HPI.
[2025-03-31 08:12] VITALS: BP 130/74; PULSE 83; RESP 18; TEMP 36.6; O2SAT 97; BMI 27.7
== END 2025-03-31 08:24 | disposition home or self-care (01) ==
LOC: HODSRG 08:04
PROVIDERS: PCP Student in an Organized Health Care Education/Training Program; Referring Provider Student in an Organized Health Care Education/Training Program; Supervising Provider Orthopaedic Surgery Adult Reconstructive Orthopaedic Surgery; Visit Provider Orthopaedic Surgery Adult Reconstructive Orthopaedic Surgery
DX: M17.0 Bilateral primary osteoarthritis of knee (principal); M25.562 Pain in left knee; M25.561 Pain in right knee; Z96.651 Presence of right artificial knee joint; I10 Essential (primary) hypertension
CPT/HCPCS: 99213; G0463

== ENCOUNTER 2025-04-16 09:30 | Outpatient (RCR) | payer MEDICARE, BC, SELFPAY ==
--- NOTE | 2025-03-23 11:44 | PT.ODAYNRPT ---
PT Outpatient Daily Note OP Daily Note Outpatient Physical Therapy Treatment Date: 03/23/25 Visit Reasons: RT knee post op Subjective: Soreness of R knee, she is using ice multiple times a day and the scar looks purple. She c/o lateral thigh and knee pain Objective: See F/S for therex Ice x5' R knee Assessment: Flexion is about 97 deg with overpressure. Pt has moderate R ITB TTP. Plan: Continue per POC Length of Time (minutes) of Treatment: 30 Minutes Procedure Charges Therapeutic Exercise 30 minutes: Yes
--- NOTE | 2025-03-26 12:01 | PT.ODAYNRPT ---
PT Outpatient Daily Note OP Daily Note Outpatient Physical Therapy Treatment Date: 03/26/25 Visit Reasons: RT knee post op Subjective: Overall better, continued soreness of R knee Objective: See F/S for therex Ice x5' R knee Assessment: Flexion is about 97 deg with overpressure. Pt has moderate R ITB TTP. Slow progress with ROM goals due to scar tissue adhesions and associated pain. Plan: Continue per POC Length of Time (minutes) of Treatment: 30 Minutes Procedure Charges Therapeutic Exercise 30 minutes: Yes
--- NOTE | 2025-03-30 10:24 | PT.ODAYNRPT ---
PT Outpatient Daily Note OP Daily Note Outpatient Physical Therapy Treatment Date: 03/30/25 Visit Reasons: RT knee post op Subjective: Pt reports R knee is bending more but still can not extend knee all the way. As per pt she is compliant with HEP. Objective: Please see flow sheet for ther ex list. Assessment: Pt can ascend descend 4 inch step with no CORRECTIONS IDENTIFICATION TECHNICIAN. Plan: Continue with pOC. Length of Time (minutes) of Treatment: 30 Minutes GROUP EXERCISE INSTRUCTOR Service Modifier Method I: Divide the number of min of care provided by the GROUP EXERCISE INSTRUCTOR/TIKI by the total min of care provided then multiply by 100. If greater than 11 percent modifier is required. Method II: Divide the total time of care provided to patient by 10 (round to the nearest whole number) and add 1 min. to set the minimum time requirement. If treatment total was 60 min., then 10% of 6 min PT CQ modifier applied: CQ Modifier applied Procedure Charges Therapeutic Exercise 30 minutes: Yes
--- NOTE | 2025-04-02 16:11 | PT.ODAYNRPT ---
PT Outpatient Daily Note OP Daily Note Outpatient Physical Therapy Treatment Date: 04/02/25 Visit Reasons: RT knee post op Subjective: Overall better, continued soreness of R knee Objective: See F/S for therex Ice x5' R knee Assessment: Flexion is about 97 deg with overpressure. Pt has moderate R ITB TTP. Slow progress with ROM goals due to scar tissue adhesions and associated pain. Plan: Continue per POC Length of Time (minutes) of Treatment: 30 Minutes Procedure Charges Therapeutic Exercise 30 minutes: Yes
--- NOTE | 2025-04-07 09:55 | PT.ODAYNRPT ---
PT Outpatient Daily Note OP Daily Note Outpatient Physical Therapy Treatment Date: 04/07/25 Visit Reasons: RT knee post op Subjective: Overall better, continued soreness of R knee Objective: See F/S for therex Ice x5' R knee Assessment: Flexion is about 97 deg with overpressure. Extension is lacking a few degrees. Pt has moderate TTP of distal ITB. Slow progress with ROM goals due to scar tissue adhesions and associated pain. Plan: Continue per POC Length of Time (minutes) of Treatment: 30 Minutes Procedure Charges Therapeutic Exercise 30 minutes: Yes
--- NOTE | 2025-04-09 10:22 | PT.ODAYNRPT ---
PT Outpatient Daily Note OP Daily Note Outpatient Physical Therapy Treatment Date: 04/09/25 Visit Reasons: RT knee post op Subjective: Overall better, continued soreness of R knee Objective: See F/S for therex Ice x7' R knee Assessment: Flexion is about 100 deg with overpressure. Extension PROM is full but AROM is lacking a few degrees. Slow progress with ROM goals due to scar tissue adhesions and associated pain. Plan: Continue per POC Length of Time (minutes) of Treatment: 30 Minutes Procedure Charges Therapeutic Exercise 30 minutes: Yes
--- NOTE | 2025-04-14 13:09 | PT.ODAYNRPT ---
PT Outpatient Daily Note OP Daily Note Outpatient Physical Therapy Treatment Date: 04/14/25 Visit Reasons: RT knee post op Subjective: Overall better, continued soreness of R knee Objective: See F/S for therex Ice x7' R knee Assessment: Flexion is about 100 deg with overpressure. Extension PROM is full but AROM is lacking a few degrees. Slow progress with ROM goals due to scar tissue adhesions and associated pain. Plan: Continue per POC Length of Time (minutes) of Treatment: 30 Minutes Procedure Charges Therapeutic Exercise 30 minutes: Yes
--- NOTE | 2025-04-16 10:48 | PT.ODAYNRPT ---
PT Outpatient Daily Note OP Daily Note Outpatient Physical Therapy Treatment Date: 04/16/25 Visit Reasons: RT knee post op Subjective: Explains she is experiencing an increase in Rt knee pain and is unsure of the cause, believes it may have been due to walking more at home. Objective: See F/S for therex Ice x Rt knee x 5 min Assessment: Pt tolerated therex well, reported an increase in pain with knee flexion. Pain decreased with verbal cue to decrease depth of squat. Plan: Continue with POC Length of Time (minutes) of Treatment: 30 Minutes Procedure Charges Therapeutic Exercise 30 minutes: Yes
== END 2025-04-19 23:59 | disposition home or self-care (01) ==
LOC: CPTX 09:30
PROVIDERS: PCP Orthopaedic Surgery Adult Reconstructive Orthopaedic Surgery; Referring Provider Orthopaedic Surgery Adult Reconstructive Orthopaedic Surgery; Visit Provider Orthopaedic Surgery Adult Reconstructive Orthopaedic Surgery
DX: M25.561 Pain in right knee (principal); R26.2 Difficulty in walking, not elsewhere classified; Z96.651 Presence of right artificial knee joint
CPT/HCPCS: 97110

== ENCOUNTER 2025-05-05 08:54 | Outpatient (RCR) | payer MEDICARE, BC, SELFPAY ==
--- NOTE | 2025-05-05 12:03 | PT.ODS1RPT ---
PT OP Progress/Discharge Note Date of Service: 05/05/25 Progress Note/DC Note Progress Note/Discharge Note: DC Note Patient Information Visit Reasons: right knee surgery Service Continue Service or Discharge: Discharge Status Subjective: Overall better ROM and strength of R knee Objective: R knee AROM PROM: Flexion: 100 deg 115 deg Extension: -7 deg full Gait: symmetrical without assistive device Strength: Quads: 4/5 HS: 4/5 Assessment: Pt has attended the eval and 17 Rx sessions with good progress with therapy goals. Pt has improved PROM to 115 deg meets the 115 deg goal and she is independent with HEP. Quad and HS strength is 4/5 to meet that goal. Pt has improved ambulatory distance to community to meet that goal. Plan: D/C with HEP Procedure Charges Therapeutic Exercise 30 minutes: Yes
== END 2025-05-19 23:59 | disposition home or self-care (01) ==
LOC: CPTX 08:54
PROVIDERS: PCP Orthopaedic Surgery Adult Reconstructive Orthopaedic Surgery; Referring Provider Orthopaedic Surgery Adult Reconstructive Orthopaedic Surgery; Visit Provider Orthopaedic Surgery Adult Reconstructive Orthopaedic Surgery
DX: M25.561 Pain in right knee (principal); R26.2 Difficulty in walking, not elsewhere classified; Z47.1 Aftercare following joint replacement surgery; Z96.651 Presence of right artificial knee joint
CPT/HCPCS: 97110

== ENCOUNTER 2025-07-28 07:51 | Outpatient (AMB) | payer MEDICARE, BC, SELFPAY ==
--- NOTE | 2025-07-28 08:03 | ORTHONT_ITS ---
Vital signs 07/28/25 08:08 Height 1.6 m Height Method Measured Weight 72.802 kg Weight Measurement Method Standing Scale BMI 28.4 BP 151/76 H Blood Pressure Source Automatic Cuff Blood Pressure Location Left Upper Arm Position Sitting Respiration 18 Pulse 79 Pulse Source Monitor Temp 98.0 F Temp Source Temporal Artery Scan Pulse Oximetry (%) 98 Oxygen Delivery Method Room Air Med/Allergies Allergies & Medications Allergies shellfish derived Allergy (Intermediate, Verified 07/28/25 08:09) Fatigued Medication Reconciliation lisinopril 5 mg tablet 5 mg PO QDAY 10/24/24 [History Confirmed 07/28/25] meloxicam 7.5 mg tablet 7.5 mg PO DAILY 01/23/25 [History Confirmed 07/28/25] acetaminophen 500 mg tablet (Acetaminophen Extra Strength) 1,000 mg (2 x 500 mg) PO Q6H PRN pain #90 tabs 01/26/25 [Rx Confirmed 07/28/25] gabapentin 300 mg capsule 300 mg PO .qhs #30 caps 01/26/25 [Rx Confirmed 07/28/25] oxycodone 5 mg tablet 5 mg PO Q6H PRN pain #28 tabs 02/18/25 [Rx Confirmed 07/28/25] Exam Exam Patient is in no acute distress and is cooperative with the examination today. Breathing is nonlabored. In no respiratory distress. Bilateral extremities were evaluated and demonstrates sensation intact to light touch. Palpable pedal pulses are present. No significant edema is present. Bilateral hips were examined. The patient has no pain with log roll of the hips. Internal rotation to 30 degrees and external rotation to 30 degrees is painless. Negative FADIR. The left knee was examined. The left knee is in [varus] alignment. Range of motion from [0-115] degrees. Knee is stable to varus and valgus as well as AP translation with <5mm. Patient has a [negative] McMurrays. There is [no] pain with patellofemoral compression and [no] crepitus noted. The knee is [tender] to palpation [medially]. Right knee incision is clean dry and intact. Range of motion is 0 to 100 degrees Right knee xrays demonstrates a cemented total knee replacement in good alignment and position Assessment and Plan Problem List (1) Degenerative arthritis of knee, bilateral: Status: Acute Plan: Patient is a pleasant 74-year-old female with bilateral knee pain and bilateral knee arthritis. She is status post right total knee replacement. Patient is doing well. Will see her approximately 6 months Advanced Care Planning Discussion Advance care planning discussed with:: patient Office Procedures GNS Level of Care Nursing/Assessment Patient Status: Established Patient Nursing Assessment/Reassesment: Medication Reconciliation, Update PMH in EMR and Vital Signs Coordination of Care: Complex Care and Chronic Disease 1-5, Education Complex Pt/Fam, Consent,records obtained, informed consent, Results/Orders obtained and Staff clarify orders Established Patient Charge Established Patient Point Assignment: 95 Established Patient Point Charge: EP Level 3 (80-115) MA Intake Visit Data Collection New Patient or Established: Established Patient (seen at [facility] within 3 years) Reason for Visit:: 6 MONTH RT TKA Seen by Clinical Staff ONLY (RN/MA): No Contract Admin Required: No PCP or OBGYN visit in last 3 months: Yes Hx Now: No Do You Feel Safe at Home: Yes Authorities Contacted: N/A Questionairres Past Medical History Past Medical History Have you ever been diagnosed with any of the following: Neurological Problems Cerebrovascular Accident (CVA): No Transient Ischemic Attacks (TIA): No Dementia: No Alzheimer's Disease: No Parkinson's Disease: No Brain Tumor: No Meningitis: No Seizures: No Epilepsy: No Multiple Sclerosis: No Cerebral Palsy: No Amyotrophic Lateral Sclerosis (ALS/Kylie Gehrig's): No Guillain-[place] Syndrome: No Spina Bifida: No Paralysis: No Peripheral Neuropathy: No Wilkes's Palsy: No Subdural Hematoma: No Migraine: No Head Trauma: No Spinal Cord Injury: No Traumatic Brain Injury: No Cardiology Problems Myocardial Infarction: No Cardiac Arrhythmia: No Atrial Fibrillation: No Angina: No Heart Murmur: No Coronary Artery Disease: No Atherosclerotic Heart Disease: No Hypercholesterolemia: No Aneurysm: No Congestive Heart Failure: No Congenital Heart Disease: No Valvular Heart Disease: No Rheumatic Fever: No Cardiomyopathy: No Edema: No Pericarditis: No Cellulitis: No Deep Vein Thrombosis: No Hypertension: Yes Hypotension: No Varicose Veins: No Respiratory Problems Chronic Obstructive Pulmonary Disease (COPD): No Asthma: No Bronchitis: No Emphysema: No Pneumonia: No Pulmonary Fibrosis: No Tuberculosis: No Pulmonary Embolism: No Pulmonary Edema: No Sleep Apnea: No CPAP Dependent: No Respiratory Aspiration: No Dyspnea: No Orthopnea: No Hx Cough: No Cough: No Wheezing: No Chest Deformities: No Smoking: No Smoking Cessation Counseling: No Smoking Exposure: No Tobacco Use: No Clubbing: No Exposure to Respiratory Irritants: No Intubation: No Stomache/Intestinal Problems Liver Cancer: No Hepatitis: No Cirrhosis: No Pancreatic Cancer: No Pancreatitis: No Celiac Disease: No Gall Bladder Disease: No Gastrointestinal Bleed: No Esophageal Varices: No Dominguez's Esophagus: No Colitis: No Ulcerative Colitis: No Diverticulitis: No Diverticulosis: No Ulcer: No Colorectal Cancer: No Irritable Bowel: No Crohn's Disease: No Obstructive Bowel: No Hiatal Hernia: No Hemorrhoids: No Gastroesophageal Reflux Disease: No Polyps: No Obesity: No Genital/Urinary Problems Chronic Kidney Disease: No Renal Disease: No Kidney Stones: No Polycystic Kidney Disease: No Neurogenic Bladder: No Inguinal Hernia: No Dialysis: No Reproductive Problems Breast Cancer: No Endometriosis: No Fibroids: No Genital Herpes: No Gonorrhea: No Pelvic Inflammatory Disease: No Polycystic Ovarian Syndrome: No Previous Pregnancies: Yes Syphilis: No Uterine Prolapse: No Musculoskeletal Problems Muscular Dystrophy: No Myasthenia Gravis: No Marfan's Syndrome: No Bone Cancer: No Arthritis: Yes Rheumatoid Arthritis: No Osteoporosis: No Degenerative Disk Disease: No Gout: No Scoliosis: No Carpal Tunnel Syndrome: No Fibromyalgia: No Fractures: No Degenerative Joint Disease: No Osteomyelitis: No Poliovirus: No Head,Eye,Nose,Throat Problems Cataracts: No Glaucoma: No Blind: No Retinal Detachment: No Macular Degeneration: No Chronic Ear Infections: No Deafness: No Eye Prosthesis: No Endocrine Problems Diabetes Mellitus Type 1: No Diabetes Mellitus Type 2: No Hypoglycemia: No Mary's Syndrome: No Jenkins's Disease: No Hyperthyroidism: No Hypothyroidism: No Thyroid Cancer: No Parathyroid Disease: No Pituitary Disease: No Systemic Lupus Erythematosus: No Syndrome of Inappropriate Antidiuretic Hormone: No Adrenal Disease: No Graves' Disease: No Blood Problems Anemia: No Leukemia: No Hemophilia: No Thalassemia: No Sickle Cell Disease: No Clotting Problems: No Psychologic Problems Schizophrenia: No Recreational Drug Use: No Bipolar Disorder: No Depression: No Anxiety: Yes Behavior Problems: No Self-Mutilation: No Attention Deficit Disorder: No Attention Deficit Hyperactivity Disorder: No Depression: No Post Traumatic Stress Disorder: No Eating Disorder: No Other Problems Hospitalization: No Autoimmune Disease: No Down Syndrome: No Autism: No Developmental Delay: No Cosmetic Surgery: No Shingles: No Falls: No Blood Transfusions: No Blood Transfusion Reaction: No Anesthesia Reactions: No Organ Transplant: No Chemotherapy: No Radiation Therapy: No Hyperbaric Therapy: No MRSA: No VRSA: No Vancomycin-Resistant Enterococci: No Human Immunodeficiency Virus (HIV): No Chicken Pox: Yes Measles: Yes Mumps: Yes Rubella ([place] Measles): No Pertussis: No Klebsiella Pneumoniae Carbapenemase Producing Bacteria: No Clostridium Difficile: No Hepatitis A: No Hepatitis B: No Hepatitis C: No Communicable Disease: No Cancer: No Cervical Cancer: No Lung Cancer: No Ovarian Cancer: No Surgical History Angioplasty: No Appendectomy: No Bariatric Surgery: No Breast Surgery: No Cancer Surgery: No Carotid Endarterectomy: No Cholecystectomy: No Colectomy: No Colostomy: No Coronary Artery Bypass Graft: No Valve Replacement: No Herniorrhaphy: No Total Hip Replacement: No Total Knee Replacement: Yes (RIGHT) Hysterectomy: No Pacemaker: No Sinus Surgery: No Splenectomy: No TAHBSO-Total Abdominal Hysterectomy: No Thyroidectomy: No Ureter Stent: No Subjective Visit Visit for: follow up visit and knee Immunization / Flu Flu Vaccine in the Last 12 Months: No Flu Vaccine Exclusion Criteria: No Exclusion Criteria History of Present Illness Chief complaint: 6 MONTH RT TKA Elisabet is a pleasant 74-year-old female with Bilateral knee pain worse on the right. She is status post right total knee replacement And is doing well. She is 6 months postop. She reports the pain continues to improve Personal History Red flag PMH: none BMI Counceling provided: No Pain Pain level (0-10): 4 Pain duration: ON AND OFF Pain location: inside (medial) and outside (lateral) Pain quality: aching and tingling Pain timing: increases with activity Associated signs & symptoms: numbness and stiffness Ambulatory data Ambulatory device: none Walking distance (minutes): 1 Treatments Number of previous injections: 2 Improvement with previous injections: No Number of Physical Therapy sessions: 7 Improvement with PT: No Improvement with NSAIDS: no Review of Systems Review of Systems: All systems negative unless otherwise noted in HPI.
[2025-07-28 08:08] VITALS: BP 151/76; PULSE 79; RESP 18; TEMP 36.7; O2SAT 98; BMI 28.4
== END 2025-07-28 08:35 | disposition home or self-care (01) ==
LOC: HODSRG 07:51
PROVIDERS: Supervising Provider Orthopaedic Surgery Adult Reconstructive Orthopaedic Surgery; Visit Provider Orthopaedic Surgery Adult Reconstructive Orthopaedic Surgery
DX: M17.12 Unilateral primary osteoarthritis, left knee (principal); M25.562 Pain in left knee; M25.561 Pain in right knee; Z96.651 Presence of right artificial knee joint; I10 Essential (primary) hypertension
CPT/HCPCS: 99213; G0463